=== PATIENT | female | born 1995 | race Caucasian/White ===

== ENCOUNTER 2017-01-16 08:35 | Emergency (ER) | payer MEDICAID ==
[~2017-01-16] VITALS: Ht 167.6 cm; Wt 118.1 kg
[~2017-01-16 08:35] MED LIST: ESCI5TAB7 PO
[2017-01-16] MEDS ORDERED: CITA20TA9 PO (08:51)
[2017-01-16 09:06] LABS: HCG UR OBC PASS; PATH.CAST-FLAG NOT PRESENT; SPERM-FLAG NOT PRESENT; SRC-FLAG NOT PRESENT; XTAL-FLAG NOT PRESENT; YLC-FLAG NOT PRESENT
[2017-01-16] MEDS ORDERED: AZITHROMYCIN 500 MG TABLET ONE (10:21)
[2017-01-16] MEDS ORDERED: CEFTRIAXONE 250 MG ONE (10:22)
[2017-01-16] MEDS ORDERED: CEFTRIAXONE 250 MG IM ONE (10:30)
[2017-01-16] MEDS ORDERED: AZITHROMYCIN 500 MG TABLET PO ONE (10:30)
[2017-01-16 10:34] VITALS: BP 130/63
== END 2017-01-16 11:20 | disposition home or self-care (01) ==
LOC: ED 11:03
DX: N89.8 Other specified noninflammatory disorders of vagina (principal); Z20.2 Contact with and (suspected) exposure to infections with a predominantly sexual mode of transmission
CPT/HCPCS: 81001; 81025; 87086; 87210; 87491; 87591; 87808; 96372; 99284; J0696

== ENCOUNTER 2017-03-11 17:41 | Emergency (ER) | payer MEDICAID, OTHER ==
[~2017-03-11] VITALS: Ht 167.6 cm; Wt 112.2 kg
[~2017-03-11 17:41] MED LIST changes: +CITA20TA9 PO
[2017-03-11 17:44] VITALS: BP 128/74
[2017-03-11] MEDS ORDERED: DEXAMETHASONE 4 MG TABLET PO STA (18:22)
[2017-03-11] MEDS ORDERED: DEXAMETHASONE 4 MG TABLET ONE (18:27)
[2017-03-11] MEDS ORDERED: DEXAMETHASONE 4 MG TABLET PO ONE (19:00)
== END 2017-03-11 19:38 | disposition home or self-care (01) ==
LOC: ED 19:32
DX: J02.8 Acute pharyngitis due to other specified organisms (principal); H65.02 Acute serous otitis media, left ear; Z90.49 Acquired absence of other specified parts of digestive tract
CPT/HCPCS: 36415; 86308; 87081; 87880; 99284

== ENCOUNTER 2017-04-29 17:57 | Emergency (ER) | payer OTHER ==
[~2017-04-29] VITALS: Ht 167.6 cm; Wt 112.5 kg
[2017-04-29 18:37] LABS: HEMATOCRIT 39.7 % (34.6-47.8); HEMOGLOBIN 12.7 g/dL (11.7-16.4); WHITE BLOOD COUNT 12.4 x10^3/uL (4.5-13.2)
[2017-04-29 18:44] LABS: BLOOD UREA NITROGEN 9 mg/dL (7-18)
[2017-04-29] MEDS ORDERED: CEFTRIAXONE 250 MG ONE (19:25)
[2017-04-29] MEDS ORDERED: AZITHROMYCIN 250 MG TABLET ONE (19:26)
[2017-04-29] MEDS ORDERED: AZITHROMYCIN 500 MG TABLET PO ONE (19:30)
[2017-04-29] MEDS ORDERED: CEFTRIAXONE 250 MG IM ONE (19:30)
[2017-04-29 19:33] VITALS: BP 130/69
== END 2017-04-29 20:31 | disposition home or self-care (01) ==
LOC: ED 20:08
DX: A56.09 Other chlamydial infection of lower genitourinary tract (principal); N76.0 Acute vaginitis; Z90.49 Acquired absence of other specified parts of digestive tract
CPT/HCPCS: 36415; 80048; 81003; 82040; 84703; 85025; 87210; 87491; 87591; 87808; 96372; 99284; J0696